=== PATIENT | male | born 1970 | race Caucasian/White ===

== ENCOUNTER → 2019-04-30 | Outpatient (CLI) | payer BC ==
--- NOTE | 2019-04-30 12:28 | CT ---
EXAMINATION TYPE: CT abdomen pelvis wo con DATE OF EXAM: 04/30/2019 COMPARISON: None HISTORY: Left lower quadrant pain today. CT DLP: 465.8 mGycm Automated exposure control for dose reduction was used. TECHNIQUE: Helical acquisition of images was performed from the lung bases through the pelvis. FINDINGS: Lack of intravenous and oral contrast limit evaluation of both the hollow and solid viscera . LUNG BASES: There is minimal bibasilar subsegmental dependent atelectasis. Very small hiatal hernia i s questioned. LIVER/GB: No significant abnormality is appreciated. No cholelithiasis. PANCREAS: No significant abnormality is seen. No ductal dilatation. SPLEEN: No significant abnormality is seen. ADRENALS: No thickening or nodularity. 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 Entirety of the right kidney however is located within the pelvis. No nephrolithiasis or hy dronephrosis. FREE AIR: No free air is visualized ADENOPATHY: No greater than 1 cm short axis lymph node is noted in the abdomen or pelvis. REPRODUCTIVE ORGANS: Small benign-appearing calcifications of the central zone. URINARY BLADDER: Unremarkable OSSEOUS STRUCTURES: Mild multilevel degenerative change of the lumbar spine. BOWEL: Pericolonic fat stranding and phlegmonous changes around the sigmoid colon in a long segment beginning at the junction of the descending colon and sigmoid colon extending over approximately 6 cm in length. Inflammatory fat stranding surrounds multiple colonic diverticula. No gross evidence of f ree air. No well-formed pericolonic fluid collection to suggest abscess at this time. No resultant ob struction or ileus. No dilated large or small bowel. Appendix is air-filled and within normal limits of size. OTHER: There is a small fat filled periumbilical hernia. IMPRESSION: 1. ACUTE UNCOMPLICATED SIGMOID DIVERTICULITIS. 2. INCIDENTAL NOTE OF CROSS FUSED RENAL ECTOPIA WHICH CAN PREDISPOSE THE PATIENT TO NEPHROLITHIASIS, HYDRONEPHROSIS, AND RENAL INFECTIONS. HOWEVER NO HYDRONEPHROSIS OR NEPHROLITHIASIS IS SEEN AT THIS TI ME.
== END | disposition home or self-care (01) ==
LOC: RADCTMAIN 11:58
PROVIDERS: ATTEND Family Medicine
DX: K57.32 Diverticulitis of large intestine without perforation or abscess without bleeding (principal); R10.824 Left lower quadrant rebound abdominal tenderness; R11.0 Nausea
CPT/HCPCS: 74176

== ENCOUNTER → 2020-09-02 | Outpatient (CLI) | payer BC ==
--- NOTE | 2020-09-02 12:35 | XR ---
EXAMINATION TYPE: XR abdomen 1V DATE OF EXAM: 09/02/2020 COMPARISON: NONE HISTORY: Left lower quadrant pain TECHNIQUE: One view abdominal series FINDINGS: The osseous structures are intact. The bowel gas pattern is nonspecific. Hypertrophic change of the acetabulum. Calcification the right upper quadrant appears to lie outside the course of the kidney co uld be related to the underlying rib or possibly a gallstone. IMPRESSION: 1. Nonspecific abdomen.
== END | disposition home or self-care (01) ==
LOC: RADXRYALE 11:19
PROVIDERS: ATTEND Family Medicine
DX: R10.814 Left lower quadrant abdominal tenderness (principal)
CPT/HCPCS: 74018

== ENCOUNTER → 2021-01-07 | Outpatient (CLI) | payer BC ==
--- NOTE | 2021-01-07 15:58 | CT ---
EXAMINATION TYPE: CT abdomen pelvis w con DATE OF EXAM: 01/07/2021 COMPARISON: 04/30/2019 INDICATION: Low back pain, lower abdominal pain DLP: 1312 mGycm, Automated exposure control for dose reduction was used. CONTRAST: 100 mL of Isovue 300. Study performed with Oral Contrast TECHNIQUE: Axial images were obtained from above the diaphragm to the pubic rami in the axial plane a t 5 mm thick sections. Reconstructed images are reviewed on the computer in the coronal plane. FINDINGS: Limited CT sections are obtained the lung bases. The lung bases are clear. CT ABDOMEN: Liver: Normal Spleen: Normal Pancreas: Normal Adrenal glands: The adrenal glands are normal. Gallbladder: Normal Kidneys: There is a horseshoe kidney.. No hydronephrosis is present. No cysts are present. Aorta: Normal Inferior vena cava: Normal. CT PELVIS: Loops of bowel within the abdomen and pelvis are normal. Scattered diverticuli are through the si gmoid colon. Oral contrast extends to the rectum. Appendix: Normal as visualized. Urinary bladder: Normal. Genitourinary structures: Prostate contains a few calcifications. Prostate is normal size Osseous structures: No suspicious lytic or sclerotic lesions. IMPRESSIONS: 1. Horseshoe kidney. No renal stones or hydronephrosis masses or cysts are evident. 2. Diverticulosis without acute diverticulitis.
== END | disposition home or self-care (01) ==
LOC: RADCTMAIN 13:02
PROVIDERS: ATTEND Family Medicine
DX: Q63.1 Lobulated, fused and horseshoe kidney (principal); K57.90 Diverticulosis of intestine, part unspecified, without perforation or abscess without bleeding
CPT/HCPCS: 74177; Q9967

== ENCOUNTER 2021-02-03 09:50 | Day surgery (SDC) | payer BC ==
[2021-02-01 10:26] VITALS: BMI 28.5
[2021-02-03] MEDS ORDERED: ONDANSETRON 4 MG/2 ML VIAL ONE (10:28)
[2021-02-03] MEDS ORDERED: LACTATED RINGERS 1,000 ML IV ONE (10:32)
[2021-02-03] MEDS ORDERED: ONDANSETRON 4 MG/2 ML VIAL IVP ONE (10:33)
[2021-02-03 10:36] VITALS: TEMP 97.2
[2021-02-03] MEDS ORDERED: LIDOCAINE 1% INJ 10MG/ML (20 ML MDV) ONE (10:54)
[2021-02-03] MEDS ORDERED: PROPOFOL 10 MG/ML 20 ML VIAL IV ONE (10:54)
--- NOTE | 2021-02-03 11:26 | P.PCN ---
Date of Procedure: 02/03/21 Description of Procedure: BRIEF HISTORY: Patient is a 50-year-old male presenting for outpatient colonoscopy for evaluation of diverticulosis/diverticulitis. Patient has had multiple episodes of diverticulitis in the past. No prior colonoscopies reported. No family history of colon cancer. PROCEDURE PERFORMED: Colonoscopy. PREOPERATIVE DIAGNOSIS: Diverticulosis, diverticulitis, no prior colonoscopies. ESTIMATED BLOOD LOSS: Minimal. IV sedation per Anesthesia. PROCEDURE: After informed consent was obtained, the patient, was brought into the endoscopy unit. IV sedation was administered by Anesthesia under continuous monitoring. Digital rectal examination was normal. Initially the Olympus CF-190 flexible video colonoscope was then inserted in the rectum, gradually advanced into the cecum without any difficulty. Careful examination was performed as the scope was gradually being withdrawn. Ileocecal valve and the appendiceal orifice were visualized and appeared normal. Prep was excellent. Mucosa of the cecum, ascending colon, transverse colon, descending colon, sigmoid colon, and rectum appeared normal. A few scattered diverticula noted in the sigmoid colon. Retroflexion was performed in the rectum and no lesions were seen. The patient tolerated the procedure well. IMPRESSION: Mild sigmoid diverticulosis. RECOMMENDATIONS: Findings of this examination were discussed with the patient and his family. Okay to resume diet. Okay to resume medications. Recommend repeat colonoscopy in 10 years for screening for malignant neoplasm of the colon or sooner if any signs or symptoms which were further evaluation develop.
[2021-02-03 11:50] VITALS: BP 123/87; PULSE 71; RESP 16
== END 2021-02-03 12:11 | disposition home or self-care (01) ==
LOC: ORWHC2ENDO 09:50
PROVIDERS: ATTEND Internal Medicine
DX: K57.30 Diverticulosis of large intestine without perforation or abscess without bleeding (principal)
CPT/HCPCS: 45378; J2405; J2001; J2704